=== PATIENT | male | born 1950 | race Caucasian/White ===

== ENCOUNTER 2021-08-23 19:31 | Emergency (ER) | payer OTHER, BC ==
[2021-08-23 19:50] VITALS: TEMP 98.5; BMI 24.2
[2021-08-23] MEDS ORDERED: PROPOFOL 200 MG/20 ML VIAL IVPUSH ONE (22:20)
[2021-08-23] MEDS ORDERED: PROPOFOL 20 ML ONE (22:34)
[2021-08-23 22:51] LABS: ACTIVATED PTT 28.6 SECONDS (25.2-36.5)
[2021-08-23 22:53] LABS: ALBUMIN 4.1 g/dl (3.4-5.0); BILIRUBIN,TOTAL 2.2 mg/dl (0.2-1); CALCIUM 9.4 mg/dl (8.5-10); CREATININE 0.7 mg/dl (0.55-1.3); TOT PROT 7.3 g/dl (6.4-8.2)
[2021-08-23 22:55] LABS: INR 1.19 (0.83-1.09); PROTHROMBIN TIME (PATIENT) 13.2 SEC (9.7-13.0)
[2021-08-23 23:50] LABS: BASO % 0.5 % (0-2.0); EOS % 2.2 % (0-4.5); HEMATOCRIT 43.2 % (35.4-49); HEMOGLOBIN 14.7 GM/dL (11.7-16.9); LYMPH % 20.3 % (8-40); MCH 31.1 pg (25.7-33.7); MEAN CELL VOLUME 91.3 fl (80-96); MEAN PLT VOLUME 10.7 fl (7.5-11.1); MONO % 11.4 % (3.8-10.2); NEUT % 65.6 % (42.8-82.8); PLATELET COUNT 180 10^3/uL (134-434); RBC 4.73 M/mm3 (4.00-5.60); RDW 13.7 % (11.9-15.9); WHITE BLOOD COUNT 9.8 K/mm3 (4.0-10.0)
[2021-08-24 00:27] VITALS: BP 139/93; PULSE 85
== END 2021-08-24 06:30 | disposition home or self-care (01) ==
LOC: FER 19:31
PROC: 0RSJXZZ Reposition Right Shoulder Joint, External Approach (ICD-10-PCS; principal; 2021-08-23)
PROC: 3E033GC Introduction of Other Therapeutic Substance into Peripheral Vein, Percutaneous Approach (ICD-10-PCS; 2021-08-23)
DX: S42.251A Displaced fracture of greater tuberosity of right humerus, initial encounter for closed fracture (principal); S43.014A Anterior dislocation of right humerus, initial encounter; W01.0XXA Fall on same level from slipping, tripping and stumbling without subsequent striking against object, initial encounter
CPT/HCPCS: 36415; 73030-TC-RT-FY; 73070-TC-RT-FY; 73110-TC-RT-FY; 73200-TC-RT; 80053; 85025; 85610; 85730; 99285-25

== ENCOUNTER 2024-05-22 15:45 | Emergency (ER) | payer OTHER, BC ==
[2024-05-22 17:29] VITALS: BP 131/83; PULSE 79; RESP 20; TEMP 98.4; BMI 24.2
== END 2024-05-22 18:44 | disposition home or self-care (01) ==
LOC: FER 15:45
DX: M25.561 Pain in right knee (principal); V03.10XA Pedestrian on foot injured in collision with car, pick-up truck or van in traffic accident, initial encounter; Y92.410 Unspecified street and highway as the place of occurrence of the external cause
CPT/HCPCS: 70450-TC; 72125-TC; 73562-TC-RT-FY; 99284-25